=== PATIENT | female | born 1970 | race African-American/Black ===

== ENCOUNTER → 2018-03-15 | Outpatient (CLI) | payer OTHER ==
[2018-03-15 13:14] LABS: ABSOLUTE LYMPHOCYTES 1.2 thou/uL (0.8-5.3); ABSOLUTE MONOCYTES 0.3 thou/uL (0.0-1.2); ABSOLUTE NEUTROPHILS 1.6 thou/uL (1.6-8.1); EOSINOPHILS 1.1 %; HEMATOCRIT 30.6 % (37.0-47.0); HEMOGLOBIN 9.6 gm/dL (12.0-15.0); LYMPHOCYTES 37.3 %; MCH 20.7 pg (26.0-34.0); MCHC 31.4 g/dL (28.0-37.0); MONOCYTES 9.5 %; MPV 7.9 fl. (7.2-11.1); NUCLEATED RBCS 0 /100WBC; PLATELET COUNT* 300 thou/uL (150-400); POLYS 51.1 %; RBC 4.64 mil/uL (4.20-5.00); RDW-CV 18.4 % (10.5-14.5); WBC 3.1 thou/uL (4.0-11.0)
[2018-03-15 13:25] LABS: ALBUMIN 3.2 g/dL (3.4-5.0); ALKALINE PHOSPHATASE 90 U/L (46-116); ANION GAP 6 mmol/L (7-16); BUN 12 mg/dL (7-18); CALCIUM 8.6 mg/dL (8.5-10.1); CHLORIDE 105 mmol/L (98-107); CHOLESTEROL 236 mg/dL (<200); CO2 30 mmol/L (21-32); CREATININE 0.8 mg/dL (0.6-1.3); GLUCOSE 87 mg/dL (70-99); HDL CHOLESTEROL 75 mg/dL (>40); LDL CHOLESTEROL 147 mg/dL (<100); POTASSIUM 3.6 mmol/L (3.5-5.1); SGOT 18 U/L (15-37); SGPT 22 U/L (30-65); SODIUM 141 mmol/L (136-145); TC:HDL 3.1 Ratio (Not establshd); TOTAL BILIRUBIN 0.4 mg/dL (<0.1-1.0); TOTAL PROTEIN 7.6 g/dL (6.4-8.2); TRIGLYCERIDE 71 mg/dL (<150); VLDL 14 mg/dL (<40)
[2018-03-15 13:26] LABS: SERUM ASSESSMENT Clear
[2018-03-15 13:30] LABS: % SATURATION 8 % (20-39); IRON 30 ug/dL (50-175)
[2018-03-15 13:40] LABS: ANISOCYTOSIS 1+; HYPOCHROMASIA 3+; MICROCYTES 2+
[2018-03-15 21:09] LABS: GLYCOHEMOGLOBIN (HGB A1C) 5.4 % (4.8-5.6)
== END ==
LOC: M.LAB 12:48
PROVIDERS: Nurse Practitioner
DX: Z00.00 Encounter for general adult medical examination without abnormal findings (principal); D50.9 Iron deficiency anemia, unspecified; G43.109 Migraine with aura, not intractable, without status migrainosus; I10 Essential (primary) hypertension; K21.9 Gastro-esophageal reflux disease without esophagitis; R07.9 Chest pain, unspecified; Z68.41 Body mass index [BMI] 40.0-44.9, adult

== ENCOUNTER → 2018-03-24 | Outpatient (CLI) | payer OTHER ==
--- NOTE | 2018-03-24 15:15 | EXE ---
[place] [address] STRESS ECHOCARDIOGRAM Name: JOE NATION Room: [facility]#: [id number] Admission: 03/24/18 Attend Phys: Anna Pimentel, Discharge: Date of : 74 Date of Service: 03/24/18 1509 Report #: [id number] THIS REPORT FOR: //name// APPROVED REPORT Study performed: 03/24/2018 13:21:25 Exam: Stress Echocardiogram Indication: Chest pain Patient Location: Out-Patient Stress Nurse: Emily Thompson RN Supervising Physician: Ellis Nelson MD Status: routine Ht: 5 ft 6 in HR: 80 bpm BP: 154/83 mmHg Rhythm: NSR Medical History Cardiac Risk Factors: FHX of CAD, HTN Procedure The patient underwent an Exercise Stress Test using the Vernon Protocol. Blood pressure, heart rate, and EKG were monitored. An Echocardiogram was performed by biodiesel processing technician in four stages in quad fashion. At peak stress, four selected images were obtained and placed side by side with resting images for comparison. Stress Test Details Stress Test: Exercise stress testing was performed using a Vernon protocol. HR Resting HR: 80 bpm Max Heart Rate (APMHR): 175 bpm Max HR Achieved: 167 bpm Target HR (85% APMHR): 148 bpm % of APMHR: 95 Recovery HR: 103 bpm HR response to stress: Normal HR response to stress BP Resting BP: 154/83 mmHg Max BP: 181/89 mmHg Recovery BP: 135/67 [place] [address] STRESS ECHOCARDIOGRAM Name: JOE NATION Room: [facility]#: [id number] Admission: 03/24/18 Attend Phys: Anna Margarito, Discharge: Date of : 74 Date of Service: 03/24/18 1509 Report #: [id number] BP response to stress: Normal blood pressure response to stress. ECG Resting ECG: sinus rhythm Stress ECG: nonspecific st-t changes during and post exercise, isolated pvc's Clinical Reason for Termination: Fatigue Stress Symptoms: Chest discomfort Exercise duration: 2 min 27 sec Highest Stage Achieved: Stage 1: 1.7 mph at 10% grade. Exercise capacity: 3.9 METs Pre-Stress Echo The resting Echocardiogram showed normal left ventricular contractility with an estimated Ejection Fraction of about 55-60%. Normal wall motion in all segments on baseline images. Post-Stress Echo The stress Echocardiogram showed normal left ventricular contractility with an estimated Ejection Fraction of about >70%. Normal augmentation of wall motion in all segments on post stress images. Conclusion Clinical Response: Non-ischemic Exercise Capacity: Below Average Stress ECG Response: Equivocal Stress Echo Images: Non-ischemic Other Information Study Quality: Good <ELECTRONICALLY SIGNED> By: Ellis Nelson MD, LOCATED [facility]IN [facility] 03/24/18 1509 1509 1509 Ellis Nelson MD, [facility]ATED [facility] /INF
== END ==
LOC: M.CRD 13:00
DX: G43.109 Migraine with aura, not intractable, without status migrainosus (principal); I10 Essential (primary) hypertension; R07.9 Chest pain, unspecified

== ENCOUNTER → 2018-07-14 | Outpatient (CLI) | payer OTHER | LOC: M.ULTRA 11:30 | DX: N80.0 Endometriosis of uterus (principal); I86.8 Varicose veins of other specified sites; E66.9 Obesity, unspecified ==